=== PATIENT | male | born 1995 | race Caucasian/White ===

== ENCOUNTER 2016-09-18 19:38 | Emergency (ER) | payer OTHER ==
[~2016-09-18] VITALS: Ht 182.9 cm; Wt 81.0 kg
[~2016-09-18 19:38] MED LIST: CIPR0.3S OP; LISD30CA4 PO
[2016-09-18 19:45] VITALS: BP 158/97; PULSE 78; TEMP 36.7; O2SAT 97; Ht 182.9 cm; Wt 81.0 kg
[2016-09-18] MEDS ORDERED: CYCL10TA6 PO (20:04)
--- NOTE | 2016-09-18 20:05 | EMERGENCY ROOM VISIT NOTE ---
ED Visit Note First contact with patient: 19:50 CHIEF COMPLAINT: Neck pain HISTORY OF PRESENT ILLNESS: This 20-year-old male patient presents to the emergency department ambulatory complaining of pain in the neck since this morning. The patient states he went to a chiropractor for the first time a few days ago and states he was feeling better. He states that last night he stretched and felt a pulling sensation in the area of the right sternocleidomastoid muscle. He states that it did not seem bad until he woke And is having difficulty turning the head. He states he had torticollis in the past and this feels similar. He states he was treated with muscle relaxers and heat. The patient rates the pain as stiffness and 7/10. The patient has taken Tylenol for the pain. The patient does have a history of previous neck problems. The patient does not have pain of the arms and shoulders. The patient denies numbness and tingling. The patient denies chest pain or shortness of breath. There was not head injury and no loss of consciousness. The patient denies headache, blurred vision, abdominal pain, nausea, or vomiting. The patient denies change in personality. REVIEW OF SYSTEMS: A 6 system review of systems was completed with positives and pertinent negatives listed in the HPI. ALLERGIES: No known drug allergies MEDICATIONS: Vyvanse PMH: ADHD SOCIAL HISTORY: The patient is a student. He lives locally. He does not smoke PHYSICAL EXAM: VITALS: Vitals are noted on the nurse's note and reviewed by myself. Vital signs stable. GENERAL: This is a 20-year-old male, in no acute distress, nondiaphoretic, well-developed well-nourished. SKIN: The skin was without rashes, erythema, edema, or bruising. There is no tenting of the skin. There is no clubbing of the nails. Capillary reflex less than 2 seconds. HEENT: Normocephalic. PERRLA. EOMI. Nares patent. Mucous membranes moist. Neck is supple without nuchal rigidity. Cervical spine is not tender to palpation. The patient does have tenderness of the paraspinal muscles on the right. There is a spasm and tenderness in the right sternocleidomastoid muscle at the insertion of the shoulder. There is no lymphadenopathy. MUSCULOSKELETAL: The patient has full range of motion of the bilateral arms. Strength 5/5 of the bilateral upper extremities. The patient has tenderness with any movement of the neck but particularly looking down into the right . NEURO: Patient was alert and oriented to person place and time. Normal sensation to light and sharp touch. No focal neurologic deficits. Deep tendon reflexes 2+ in the upper extremities bilaterally. The patient has a history of torticollis and states this feels similar. He stretched his head, neck and shoulders and felt a pulling sensation and then developed tightness in the area. The patient does have muscle spasm on examination. He does not have any fever. Infectious process such as meningitis is considered less likely. He does not have any neurologic deficit on exam or by history. The patient has done well with muscle relaxers in the past. He will be given a prescription for Flexeril. He should apply heat to the area. He should try anti-inflammatories. He should follow up with [facility] at the end of the week if his symptoms are not improving. He should return to the ER with any worsening symptoms. Current/Historical Medications Scheduled Cyclobenzaprine Hcl (Flexeril), 10 MG PO TID Lisdexamfetamine Dimesylate (Vyvanse), 40 MG PO DAILY Allergies Coded Allergies: No Known Allergies (Unverified , 11/29/15) Vital Signs Date Time Temp Pulse Resp B/P Pulse Ox O2 Delivery O2 Flow Rate FiO2 09/18/16 19:45 36.7 78 18 158/97 97 Room Air Medications Administered Medications (Trade) Dose Ordered Sig/Bill Route Start Time Stop Time Status Last Admin Dose Admin Cyclobenzaprine HCl (FLEXERIL 10MG Home Pack) 1 homepack UD ONCE PO 09/18/16 20:15 09/18/16 20:16 DC 09/18/16 20:18 1 HOMEPACK Departure Information Impression Primary Impression: Torticollis, acute Dispostion Home / Self-Care Condition GOOD Prescriptions Cyclobenzaprine Hcl (FLEXERIL) 10 Mg Tab 10 MG PO TID, #30 TAB Prov: Shaista Arce PA-C 09/18/16 Referrals No Doctor, Assigned (PCP) Patient Instructions My [facility], Torticollis Additional Instructions Anti-inflammatory according to package instructions for the next 3-5 days Flexeril every 8 hours as needed for muscle spasm; the Flexeril may make you sleepy. Do not drive while taking the Flexeril. Heat to the area to help relieve muscle spasm. Follow-up with [facility] by the middle or end of the week if symptoms are not improving Return to the emergency Department with any severe headaches, numbness, tearing , weakness of the upper extremities, fevers
[2016-09-18] MEDS ORDERED: FLEXERIL HOME PACK 10 MG VIAL PO ONE (20:15)
[2016-09-18] MEDS ORDERED: LISD40CA PO (20:22)
== END 2016-09-18 20:36 | disposition home or self-care (01) ==
LOC: C.EDB 19:40 → C.EDD 20:36
DX: M43.6 Torticollis (principal); F90.0 Attention-deficit hyperactivity disorder, predominantly inattentive type